=== PATIENT | female | born 1995 | race Hispanic/Latino ===

== ENCOUNTER 2020-04-03 19:58 | Emergency (ER) | payer SELFPAY ==
--- NOTE | 2020-04-03 20:01 | Emergency Department Report ---
Blank Doc - Documentation Documentation: 25-year-old female that presents with bilateral hand abrasions with right wrist laceration s/p hitting window 4 days ago. This initial assessment/diagnostic orders/clinical plan/treatment(s) is/are subject to change based on patient's health status, clinical progression and re- assessment by fellow clinical providers in the ED. Further treatment and workup at subsequent clinical providers discretion. Patient/guardians urged not to elope from the ED as their condition may be serious if not clinically assessed and managed. Initial orders include: 1- Patient sent to [facility] for further evaluation and treatment 2- xrays
[2020-04-03 20:06] VITALS: BP 161/102
--- NOTE | 2020-04-03 21:09 | XRay Report ---
. RIGHT WRIST 3 VIEW(S) INDICATION / CLINICAL INFORMATION: pain w/ lac r/o foreign body COMPARISON: None available. FINDINGS: BONES / JOINT(S): No acute fracture or subluxation. No significant arthritis. SOFT TISSUES: Soft tissue laceration over the volar wrist. No evidence of radiopaque retained foreign body. ADDITIONAL FINDINGS: None. Signer Name: Gulshan Oro MD Signed: 04/03/2020 9:04 PM Workstation Name: [id number]
--- NOTE | 2020-04-03 21:30 | XRay Report ---
BILATERAL HAND 2 VIEW(S) INDICATION / CLINICAL INFORMATION: pain w/ lac r/o foreign body COMPARISON: None available. FINDINGS: BONES / JOINT(S): No acute fracture or subluxation. No significant arthritis. Carpal arcs are intact bilaterally. SOFT TISSUES: Soft tissue laceration with swelling and edema noted over the volar surface of the righ t wrist. ADDITIONAL FINDINGS: No evidence of radiopaque retained foreign body. Signer Name: Gulshan Oro MD Signed: 04/03/2020 9:25 PM Workstation Name: [id number]
[2020-04-04] MEDS ORDERED: IBUPROFEN 600 MG TAB PO ONE (00:37)
[2020-04-04] MEDS ORDERED: LET TOPICAL (LIDOCAINE/EPINEPHRINE/TETRACAINE) 3 ML TP ONE (00:37)
[2020-04-04] MEDS ORDERED: NEOMY 3.5 MG/BACIT 400 UNITS/POLY B 5000 UNITS/GM OINT PACKET TP ONE (00:37)
[2020-04-04] MEDS ORDERED: HYDROcodone/ACETAMINOPHEN 5-325 MG TAB PO ONE (00:37)
[2020-04-04] MEDS ORDERED: DIPHtheria,PERTUSSIS(ACELL),TETANUS VACCINE/PF 0.5 ML VIAL IM ONE (00:38)
--- NOTE | 2020-04-04 02:21 | Emergency Department Report ---
Upper Extremity - HPI Chief Complaint: Laceration/Recheck/Suture Stated Complaint: BILATERAL HAND LACERATION Time Seen by Provider: 04/03/20 19:59 Upper Extremity: Left Wrist, Left Hand, Left Thumb, Left Index Finger, Right Wrist, Right Hand, Right Thumb, Right Index Finger Occurred When: 3 Days Mechanism: Crush, Other (Punched glass windows causing multiple abrasions and a lacerations) Severity: severe Symptoms: Yes Pain with Movement, Yes Swelling, Yes Bruising/Ecchymosis, Yes Laceration or Abrasion, No Deformity, No Limited Range of Movement, No Numbness, No Weakness Other History: Patient is a 25-year-old white female with no past medical history presents to the ED with complaint of acute onset painful bleeding multiple abrasion wounds on bilateral hands and significant laceration on right wrist after she punched windows at home about 3 days ago after she forgot her keys in the house. Patient's states that she tried to clean the wounds and sutured them at home herself but it appeared that it was not successfully performed as the pain is worsened and the sutures that were placed all came off. Patient states that the pain has worsened also in the last 2 days despite taking oral [id number] medications and cleaning the wounds thoroughly. Patient states that she is not up-to-date with her tetanus vaccinations. Patient denies numbness and tingling or weakness of bilateral hands and wrist, fall, nausea, vomiting, fever, chills, numbness and tingling or chest pain or shortness of breath, fall, neck pain, back pain or change in vision. ED Review of Systems ROS: Stated complaint: BILATERAL HAND LACERATION Other details as noted in HPI Constitutional: denies: chills, fever Eyes: denies: eye pain, eye discharge, vision change ENT: denies: ear pain, throat pain Respiratory: denies: cough, shortness of breath, wheezing Cardiovascular: denies: chest pain, palpitations Endocrine: no symptoms reported Gastrointestinal: denies: abdominal pain, nausea, diarrhea Genitourinary: denies: urgency, dysuria, discharge Musculoskeletal: arthralgia (Bilateral hand and wrist pain due to multiple abrasions and laceration on right wrist and right left hand). denies: back pain, joint swelling Skin: other (Multiple abrasion wounds on bilateral hands and wrists with bleeding laceration on right wrist). denies: rash, lesions Neurological: denies: headache, weakness, paresthesias Psychiatric: denies: anxiety, depression Hematological/Lymphatic: denies: easy bleeding, easy bruising ED Past Medical Hx - Past Medical History Previous Medical History?: No - Surgical History Past Surgical History?: Yes Additional Surgical History: tonsilectomy - Social History Smoking Status: Never Smoker Substance Use Type: None - Medications Home Medications: Home Medications Medication Instructions Recorded Confirmed Last Taken Type Ibuprofen [Motrin] 800 mg PO Q8HR PRN #30 tablet 04/04/20 Unknown Rx cephALEXin [Keflex] 500 mg PO Q8HR #30 cap 04/04/20 Unknown Rx Upper Extremity Exam - Exam General: Vital signs noted. No distress. Alert and acting appropriately. Head and Torso: No HEENT Abnormality, No Neck Tenderness, No Chest/Lungs Abnormality, No Abdominal Tenderness, No Back Tenderness Shoulder Exam: Yes Normal Range of Motion in Shoulder, No Shoulder Tenderness, No Clavicle Tenderness, No Shoulder Deformity, No AC Joint Tenderness Arm Exam: No Arm/Humerus Tenderness, No Arm Deformity Elbow: Yes Normal Range of Motion in Elbow, No Elbow Tenderness, No Elbow Deformity Forearm: No Forearm Tenderness, No Forearm Deformity, No Pain with Pronation, No Pain with Supination Wrist: Yes Wrist Tenderness (Right wrist), Yes Normal ROM in Wrist, No Wrist Deformity, No Snuffbox Tenderness, No Pain with Axial Thumb Compression Hand: Yes Hand Tenderness (Bilateral hands and right wrist), Yes Digit Tenderness (Right hand), Yes Normal ROM in Digit(s), No Hand Deformity, No Digit(s) Deformity, No Tendon Dysfunction CMS Exam: Yes Broken Skin (Bilateral hands and right wrist), Yes Normal Distal Pulses, Yes Normal Capillary Refill, Yes Normal Distal Sensation ED Course Vital Signs 04/03/20 20:01 Temperature 98 F Pulse Rate 102 H Respiratory 16 Rate Blood Pressure 161/102 O2 Sat by Pulse 100 Oximetry ED Medical Decision Making - Radiology Data Radiology results: report reviewed, image reviewed Findings [facility] [address] [place] [address] XRay Report Signed Patient: PAVAN BALDWIN MR#: [id number] [birth year] : 1995 Acct:[id number] Age/Sex: 25 / F ADM Date: 04/03/20 Loc: ED Attending Dr: Ordering Physician: JLUIS MCALLISTER NP Date of Service: 04/03/20 Procedure(s): XR wrist 3+V RT Accession Number(s): [id number] cc: JLUIS MCALLISTER NP Fluoro Time In Minutes: . RIGHT WRIST 3 VIEW(S) INDICATION / CLINICAL INFORMATION: pain w/ lac r/o foreign body COMPARISON: None available. FINDINGS: BONES / JOINT(S): No acute fracture or subluxation. No significant arthritis. SOFT TISSUES: Soft tissue laceration over the volar wrist. No evidence of radiopaque retained foreign body. ADDITIONAL FINDINGS: None. Signer Name: Ruthie Thakkar MD Signed: 04/03/2020 9:04 PM Workstation Name: [id number] Transcribed By: CH Dictated By: RUTHIE THAKKAR Electronically Authenticated By: RUTHIE THAKKAR Signed Date/Time: 04/03/202103 DD/ 02 TD/TT: Findings [facility] [address] [place] [address] XRay Report Signed Patient: PAVAN BALDWIN MR#: [id number] 26 : 1995 Acct:[id number] Age/Sex: 25 / F ADM Date: 04/03/20 Loc: ED Attending Dr: Ordering Physician: JLUIS MCALLISTER NP Date of Service: 04/03/20 Procedure(s): XR hand BILAT 2V Accession Number(s): [id number] cc: JLUIS MCALLISTER NP Fluoro Time In Minutes: BILATERAL HAND 2 VIEW(S) INDICATION / CLINICAL INFORMATION: pain w/ lac r/o foreign body COMPARISON: None available. FINDINGS: BONES / JOINT(S): No acute fracture or subluxation. No significant arthritis. Carpal arcs are intact bilaterally. SOFT TISSUES: Soft tissue laceration with swelling and edema noted over the volar surface of the right wrist. ADDITIONAL FINDINGS: No evidence of radiopaque retained foreign body. Signer Name: Ruthie Thakkar MD Signed: 04/03/2020 9:25 PM Workstation Name: [id number] Transcribed By: Dictated By: RUTHIE THAKKAR Electronically Authenticated By: RUTHIE THAKKAR Signed Date/Time: 04/03/202124 DD/ 23 TD/TT: - Medical Decision Making This is a 25-year-old white female with no past medical history presents to the ED with complaint of acute onset painful bleeding multiple abrasion wounds on bilateral hands and significant laceration on right wrist after she punched windows at home about 3 days ago after she forgot her keys in the house. Patient's states that she tried to clean the wounds and sutured them at home herself but it appeared that it was not successfully performed as the pain is worsened and the sutures that were placed all came off. Patient states that the pain has worsened also in the last 2 days despite taking oral ygaz-itz-iegdnak medications and cleaning the wounds thoroughly. Patient states that she is not up-to-date with her tetanus vaccinations. In the ED, patient is alert and oriented x3 and is not in distress. Patient was treated for pain in the ED and also received booster tetanus vaccinations. The wounds were cleaned thoroughly and approximated the wounds with Steri-Strips since it is over 3 days since this wounds were sustained. The wounds were then dressed appropriately after application of Neosporin ointment. Bilateral hand x-rays showed no acute fractures or subluxations. Right wrist x-ray also showed no acute fractures or subluxations. On reevaluation, patient's pain is well controlled medications. Patient was advised to follow-up with her primary care physician in 5 to 7 days for reevaluation or return to the ED immediately if symptoms get worse. - Differential Diagnosis Hand contusion; hand fracture; wrist fracture; wrist laceration; abrasions Critical care attestation.: If time is entered above; I have spent that time in minutes in the direct care of this critically ill patient, excluding procedure time. ED Disposition Clinical Impression: Contusion of hand including fingers Qualifiers: Encounter type: initial encounter Laterality: unspecified laterality Qualified Code(s): S60.229A - Contusion of unspecified hand, initial encounter; S60.00XA - Contusion of unspecified finger without damage to nail, initial encounter Sprain of right wrist Qualifiers: Encounter type: initial encounter Qualified Code(s): S63.501A - Unspecified sprain of right wrist, initial encounter Laceration of right wrist without foreign body Qualifiers: Encounter type: initial encounter Qualified Code(s): S61.511A - Laceration without foreign body of right wrist, initial encounter Abrasion hand Qualifiers: Encounter type: initial encounter Laterality: unspecified laterality Qualified Code(s): S60.519A - Abrasion of unspecified hand, initial encounter Disposition: TO HOME OR SELFCARE Is pt being admited?: No Does the pt Need Aspirin: No Condition: Stable Instructions: Hand Contusion, Laceration Care, Adult, [id number], Abrasion, Wrist Sprain, Adult, Contusion, [id number] Additional Instructions: Bilateral hand x-ray and right wrist x-ray showed no acute fractures or subluxations or presence of any foreign bodies. Therefore take medication with food, drink plenty of fluids and follow-up with your primary care physician in 7 to 10 days for reevaluation. Return to the ED immediately if symptoms get worse. Prescriptions: cephALEXin [Keflex] 500 mg PO Q8HR #30 cap Ibuprofen [Motrin] 800 mg PO Q8HR PRN #30 tablet PRN Reason: Pain , Severe (7-10) Referrals: [facility] [Provider Group] - 7-10 days Time of Disposition: : Print Language: TURKISH
[2020-04-04] MEDS ORDERED: NEOMY 3.5 MG/BACIT 400 UNITS/POLY B 5000 UNITS OINT 15 GM TP SCH (08:00)
== END 2020-04-04 02:35 | disposition home or self-care (01) ==
LOC: ED 19:58
DX: S61.511A Laceration without foreign body of right wrist, initial encounter (principal); S63.501A Unspecified sprain of right wrist, initial encounter; S60.229A Contusion of unspecified hand, initial encounter; Z90.79 Acquired absence of other genital organ(s); X58.XXXA Exposure to other specified factors, initial encounter; Y93.89 Activity, other specified; Y92.89 Other specified places as the place of occurrence of the external cause; Y99.8 Other external cause status
CPT/HCPCS: 73110; 73120; 90715; 96372; 99284; A6250